=== PATIENT | female | born 1980 | race African-American/Black ===

== ENCOUNTER 2022-04-02 10:48 | Outpatient (RCR) | payer OTHER, SELFPAY ==
[2022-04-01] MEDS: BETAMETHASONE SOD PHOS/ACETATE 30 MG/5 ML VIAL 12 MG IM (10:16)
[2022-04-02] MEDS: BETAMETHASONE SOD PHOS/ACETATE 30 MG/5 ML VIAL 12 MG IM (11:00)
== END 2022-06-30 23:59 | disposition home or self-care (01) ==
LOC: ANHOBOP 10:48
PROVIDERS: Visit Provider Obstetrics & Gynecology
DX: O36.8990 Maternal care for other specified fetal problems, unspecified trimester, not applicable or unspecified (principal); Z3A.00 Weeks of gestation of pregnancy not specified
CPT/HCPCS: 96372; J0702

== ENCOUNTER 2022-04-07 01:09 | Observation (INO) | payer OTHER, SELFPAY ==
[2022-04-07] VITALS (7 sets, daily range): BP systolic 93–100; BP diastolic 48–55; PULSE 65–81; TEMP 36.6; BMI 29.1
[2022-04-07 01:47] LABS: Basophils Absolute Auto 0.1 K/mm3 (0.0-0.1); Basophils Percent Auto 0.5 % (0.2-1.2); Eosinophils Absolute Auto 0.1 K/mm3 (0-0.3); Eosinophils Percent Auto 0.8 % (0-4.4); Hematocrit 28.9 % (37.0-47.0); Hemoglobin 9.6 g/dL (12.0-15.0); Immature Granulocyte Absolute 0.22 K/mm3 (0.00-0.031); Immature Granulocyte Percent A 2.1 % (0-0.5); Lymphocytes Percent Auto 20.6 % (18.3-44.2); Mean Corpuscular HGB Conc 33.2 g/dl (32-36); Mean Corpuscular Hemoglobin 30.3 pg (26-34); Mean Corpuscular Volume 91.2 fl (80-100); Mean Platelet Volume 8.7 fl (7.4-10.4); Monocytes Absolute Auto 0.8 K/mm3 (0.1-0.6); Monocytes Percent Auto 7.9 % (2.6-8.5); Neutrophils Absolute Auto 7.3 K/mm3 (1.3-6.7); Neutrophils Percent Auto 68.1 % (45.5-73.1); Nucleated Red Blood Cells Perc 0.4 % (0.0-0.2); Platelet Count Result 366 k/mm3 (150-375); Red Blood Count 3.17 M/mm3 (4.2-5.4); Red Cell Distribution Width 13.1 % (11.5-14.5); White Blood Count 10.7 K/mm3 (4.5-10.0)
[2022-04-07] MEDS: DEXTROSE 5%/LACTATED RINGERS 1,000 ML 999 ML IV CONT (01:48)
[2022-04-07] MEDS: FAMOTIDINE 20 MG/2 ML VIAL IV PUSH (01:48)
[2022-04-07] MEDS: ONDANSETRON INJ 4 MG/2 ML VIAL IV PUSH (01:48)
[2022-04-07 01:49] LABS: Appearance Urine Clear (Clear); Bilirubin Urine Negative (Negative); Blood Urine Negative (Negative); Color Urine Light Yellow (Yellow); Glucose Urine UA Negative (Negative); Ketones Urine Negative (Negative); Leukocyte Esterase Ur Negative LEU/UL (NEGATIVE); Nitrate Urine Negative (Negative); Protein Urine Negative (Negative); Urobilinogen Urine 0.2 mg/dL (<2.0)
--- NOTE | 2022-04-07 01:54 | OBADM ---
This patient, Tim Alvarado, admitted to the OB room OB Post 117 for observation. Patient/family oriented to hospital policies and general routines including ID bracelet, bed and alarms, visiting hours, pain management, procedures, bathroom and other care routines, personal items, smoking policy, room service/diet, and visiting hours. Patient/Family are encouraged to report perceived risks to care and to ask questions if they do not understand what they are told or what they should do.
[2022-04-07 01:56] LABS: Bacteria Urine Trace /hpf; Mucus Urine Moderate /lpf; RBC Urine 0-2 /hpf (0-2); Squamous Epithelial Cell Urine Occasional /hpf (Few); WBC Urine 0-3 /hpf (0-3)
[2022-04-07 02:07] LABS: Add Urine Microscopic? NO; Alanine Aminotransferase 20 U/L (6-35); Albumin Level 3.4 g/dL (3.5-5.1); Alkaline Phosphatase 131 U/L (38-126); Anion Gap 4 mmol/L (8-16); Aspartate Amino Transferase 24 U/L (14-36); Bilirubin,Total 0.4 mg/dL (0.2-1.3); Blood Urea Nitrogen 4 mg/dL (7-17); Calcium 7.7 mg/dL (8.4-10.2); Carbon Dioxide 25 mmol/L (22-30); Chloride 104 mmol/L (98-107); Estimated CRCL calculation 154 ml/min; Estimated Glomerular Filt Rate > 60; Glucose 84 mg/dL (65-110); Potassium 3.7 mmol/L (3.4-5.0); Sodium 133 mmol/L (137-145)
--- NOTE | 2022-04-13 08:23 | PM.OBTRLD ---
OB - Triage/Final Diagnosis Visit Information Comments/Additional reasons for admission: I have assessed the risk for this patient, Tim Alvarado, and determined that she would benefit from observation care. Evaluation Laboratory results: Laboratory Tests 04/07/22 04/07/22 04/07/22 01:41 01:41 01:41 WBC 10.7 H RBC 3.17 L Hgb 9.6 L Hct 28.9 L MCV 91.2 MCH 30.3 MCHC 33.2 RDW 13.1 Plt Count 366 MPV 8.7 Immature Gran % (Auto) 2.1 H Neut % (Auto) 68.1 Lymph % (Auto) 20.6 [place] % (Auto) 7.9 Eos % (Auto) 0.8 Baso % (Auto) 0.5 Lymph # (Auto) 2.20 [place] # (Auto) 0.8 H Eos # (Auto) 0.1 Baso # (Auto) 0.1 Abs Immat Gran (auto) 0.22 H Absolute Neuts (auto) 7.3 H Absolute Nucleated RBC 0.0 Nucleated RBC % 0.4 H Sodium 133 L Potassium 3.7 Chloride 104 Carbon Dioxide 25 Anion Gap 4 L BUN 4 L Creatinine 0.40 L Estim Creat Clear Calc 154 Estimated GFR > 60 Glucose 84 Calcium 7.7 L Total Bilirubin 0.4 AST 24 ALT 20 Alkaline Phosphatase 131 H Total Protein 7.0 Albumin 3.4 L Urine Color Light yellow Urine Appearance Clear Urine pH 7.0 Ur Specific [place] 1.010 Urine Protein Negative Urine Glucose (UA) Negative Urine Ketones Negative Ur Blood (Man) Negative Urine Nitrate Negative Urine Bilirubin Negative Urine Urobilinogen 0.2 Ur Leukocyte Esterase Negative Urine RBC 0-2 Urine WBC 0-3 Ur Squamous Epith Cells Occasional Urine Bacteria Trace Urine Mucus Moderate H Final Diagnosis (1) Nausea/vomiting in : Code(s): O21.9 - Vomiting of , unspecified Status: Acute
== END 2022-04-07 03:36 | disposition home or self-care (01) ==
PROVIDERS: Advanced Practice Midwife; Admitting Provider Obstetrics & Gynecology; Visit Provider Obstetrics & Gynecology
DX: O21.2 Late vomiting of pregnancy (principal); O26.893 Other specified pregnancy related conditions, third trimester; R10.9 Unspecified abdominal pain; Z3A.35 35 weeks gestation of pregnancy
CPT/HCPCS: 36415; 80053; 81003; 85025; 87086; 96374; 96375; G0378; G0379; J2405; J7121

== ENCOUNTER 2022-04-23 06:28 | Inpatient (IN) | payer OTHER, SELFPAY ==
[2022-04-23] VITALS (39 sets, daily range): BP systolic 77–164; BP diastolic 37–144; PULSE 54–190; RESP 18; TEMP 36.6–37; O2SAT 80–100; BMI 29.9
--- NOTE | 2022-04-23 07:00 | P.PNAN_ITS ---
Anes - Eval Pre Procedure Procedure: labor epidural Date/Time: 04/23/22 07:00 Surgeon: onesimo Preop Diagnosis: pain during labor Pre Op Diagnosis: IOL Patient Data Age: 41 Gender: F Height: Weight: Allergies Allergy/AdvReac Type Severity Reaction Status Date / Time Latex, Natural Rubber Allergy Rash Verified 04/14/22 15:55 Home Medications Medication Instructions Recorded Confirmed Type famotidine 20 mg tablet (Pepcid) 20 mg PO BID 04/07/22 04/07/22 History nifedipine 10 mg capsule 10 mg PO BID 04/07/22 04/07/22 History ondansetron HCl 8 mg tablet 8 mg PO Q12H 04/07/22 04/07/22 History vit#24-iron amino acid 1 tablet PO DAILY 04/14/22 04/14/22 History chelat-folic acid 30 mg-975 mcg tablet Patient hx anesthesia problems: none Family hx anesthesia problems: none Results Review: All pre-operative results and documents have been reviewed as part of the pre- operative evaluation. PMFSH Past Medical History Medical History (Updated 04/23/22 @ 07:01 by Lina Kent CRNA) IUP (intrauterine ), incidental PIH ( induced hypertension) Family History Family History (Updated 04/14/22 @ 15:59 by Gavi Gregory RN) Other Unknown family medical history Social History Social History Substance use: never Spiritual care concerns: No Exam Day of Procedure 04/23/22 07:00
[2022-04-23 07:17] LABS: Basophils Percent Auto 0.2 % (0.2-1.2); Eosinophils Absolute Auto 0.1 K/mm3 (0-0.3); Eosinophils Percent Auto 0.9 % (0-4.4); Hematocrit 31.4 % (37.0-47.0); Hemoglobin 10.5 g/dL (12.0-15.0); Immature Granulocyte Absolute 0.13 K/mm3 (0.00-0.031); Immature Granulocyte Percent A 1.6 % (0-0.5); Lymphocytes Absolute Auto 1.83 K/mm3 (0.9-3.2); Lymphocytes Percent Auto 22.3 % (18.3-44.2); Mean Corpuscular HGB Conc 33.4 g/dl (32-36); Mean Corpuscular Hemoglobin 30.2 pg (26-34); Mean Corpuscular Volume 90.2 fl (80-100); Mean Platelet Volume 9.2 fl (7.4-10.4); Monocytes Absolute Auto 0.5 K/mm3 (0.1-0.6); Monocytes Percent Auto 5.9 % (2.6-8.5); Neutrophils Absolute Auto 5.7 K/mm3 (1.3-6.7); Neutrophils Percent Auto 69.1 % (45.5-73.1); Platelet Count Result 350 k/mm3 (150-375); Red Blood Count 3.48 M/mm3 (4.2-5.4); Red Cell Distribution Width 13.4 % (11.5-14.5); White Blood Count 8.2 K/mm3 (4.5-10.0)
[2022-04-23] MEDS: OXYTOCIN 30 UNITS/NS 500 ML 30 UNITS/500 ML BAG IV CONT (07:26)
[2022-04-23] MEDS: LACTATED RINGERS 1,000 ML 125 ML IV CONT ×2 (07:28→13:41)
[2022-04-23] MEDS: AMPICILLIN 2 GM/NS 100 ML 2 GM/100 ML BAG IVPB (07:28)
--- NOTE | 2022-04-23 07:39 | LDADM ---
This patient, Tim Alvarado, was admitted to Labor/Delivery/Recovery 108 on 04/23/22 at 06:28. Plans for labor, pain management and were discussed with patient. Patient/family oriented to hospital policies and general routines including ID bracelet, bed and alarms, visiting hours, pain management, procedures, bathroom and other care routines, personal items, smoking policy, room service/diet and guest tray routines, infant security routines, and visiting hours. Patient/Family are encouraged to report perceived risks to care and to ask questions if they do not understand what they are told or what they should do. See OBIX for further documentation.
--- NOTE | 2022-04-23 08:02 | WPDOBADMIT ---
Obstetrics - Admit Note Admission Note: record reviewed. No pertinent additions to the history and/or any subsequent changes in the physical findings that are not consistent with the expected course of the were found. iol for cholestasis, SVE /-2, AROM minimal amount of clear fluid, anticipate vaginal delivery Additions to the history and/or subsequent changes in the physical findings follow. None.
[2022-04-23] MEDS: FAMOTIDINE 20 MG/2 ML VIAL IV PUSH (08:11)
[2022-04-23] MEDS: AMPICILLIN 1 GM/NS 50 ML 1 GM/50 ML BAG IVPB (11:25)
[2022-04-23] MEDS: fentaNYL CITRATE INJ (*CRX) 100 MCG/2 ML VIAL 50 MCG IV PUSH (11:26)
[2022-04-23] MEDS: fentaNYL CITRATE INJ (*CRX) 100 MCG/2 ML VIAL IV PUSH ×2 (12:31→13:59)
[2022-04-23 13:50] LABS: Rapid Plasma Reagin Non-Reactive (NonReactive)
--- NOTE | 2022-04-23 15:08 | PM.OBPRVD ---
OB - Delivery Note Procedure Delivery date: 04/23/22 Procedure: Events: Other (suspected cholestasis) Induction method: AROM and Per Pitocin Protocol Delivery monitor: External FHT and External Uterine Route of delivery: Laceration Description: Perineal - 1st Degree Delivery repair: vicryl Specimen: Yes Quantitative Blood Loss (ml): 85 Anesthesia type: Epidural Disposition: Floor Baby Date of : 04/23/22 Time of : 14:57 Weeks of gestation at delivery: 38 gender: Male presentation: vertex position: Left Occiput Anterior Placenta delivery description: Spontaneous Cord Vessel Description: 3 Vessels, Nuchal Cord, Loose and Reduced score one minute: 8 score five minutes: 9 Narrative: mom and baby stable and doing skin to skin
[2022-04-23] MEDS: OXYTOCIN 30 UNITS/NS 500 ML 30 UNITS/500 ML BAG 125 UNITS IV CONT (15:22)
[2022-04-23] MEDS: WITCH HAZEL 40 PADS 1 PAD TOPICAL (17:50)
[2022-04-23] MEDS: BENZOCAINE 20% AER SPR (*SP) 56 GM CAN 1 SPRAY TOPICAL (17:50)
[2022-04-23] MEDS: IBUPROFEN 600 MG TABLET PO (17:57)
--- NOTE | 2022-04-23 18:08 | PC.NURSE ---
Patient transferred to post room #290 per wheelchair from labor and delivery. Support person present. Oriented to unit, room, information board, rooming in, admission packet and security measures. Patient verbalizes understanding.
[2022-04-24 00:04] VITALS: BP 83/49; PULSE 62; RESP 16; TEMP 36.9; O2SAT 99
[2022-04-24] MEDS: IBUPROFEN 600 MG TABLET PO ×3 (01:40→16:54)
[2022-04-24] MEDS: DOCUSATE SODIUM 100 MG CAPSULE PO ×3 (01:40→16:54)
[2022-04-24 04:20] VITALS: BP 87/52; PULSE 66; RESP 16; TEMP 36.8; O2SAT 97
[2022-04-24 04:29] LABS: Hematocrit 26.3 % (37.0-47.0); Hemoglobin 8.8 g/dL (12.0-15.0)
[2022-04-24 07:30] VITALS: BP 82/52; PULSE 60; RESP 18; TEMP 37.3; O2SAT 99
[2022-04-24] MEDS: POLYSACCHARIDE IRON COMPLEX 150 MG CAPSULE PO ×2 (08:18→16:54)
[2022-04-24] MEDS: MULTIVIT/MIN/PREN/FOL AC/IRON TABLET 1 TAB PO (08:18)
[2022-04-24] MEDS: FAMOTIDINE 20 MG TABLET (08:18)
--- NOTE | 2022-04-24 08:51 | PM.OBPNVD ---
OB - PN: Subj Subjective Date/time seen: 04/24/22 08:51 Patient comments: no complaints and pain well controlled baby status: nursing well [place] feeding status: exclusively breast feeding OB - PN: Obj Data Labs 04/24/22 04:14 Labs: Laboratory Results - last 24 hr 04/23/22 04/23/22 04/24/22 06:47 06:47 04:14 Hgb 8.8 L Hct 26.3 L RPR Non-reactive Antibody Screen Negative OB - PN A/P Assessment and Plan (1) , delivered: Code(s): O80 - Encounter for full-term uncomplicated delivery Status: Acute (2) Anemia: Code(s): D64.9 - Anemia, unspecified Status: Acute Plan day: 1 Plan: routine care Comments: IV iron home tomorrow Time Spent With Patient Time: Total time spent is greater than 50% in coordination of care (as documented) at patient's floor/unit and/or counseling patient: Time with patient: less than 15 minutes Exam Narrative: NAD abdomen soft, nontender, fundus firm below the umbilicus Extremities nontender, 1+ edema
[2022-04-24 12:45] VITALS: BP 101/56; PULSE 68; RESP 16; TEMP 36.8
--- NOTE | 2022-04-24 13:54 | WPDANLDPN2 ---
Anes-Prog Note L&D Date/Time: 04/24/22 13:54 Comfortable throughout: labor and delivery Neuraxial method: epidural Epidural/Spinal procedure site: clean & non-tender Neuro status: Neuro function grossly intact. Cardiovascular status: normal Respiratory status: normal Airway patency: baseline Mental status: baseline Post-Op hydration status: normal Vital Signs: Last Vital Signs Temp 98.3 F 04/24/22 12:45 Pulse 68 04/24/22 12:45 Resp 16 04/24/22 12:45 BP 101/56 L 04/24/22 12:45 Pulse Ox 99 04/24/22 07:30 O2 Del Method Room Air 04/23/22 07:37 Pain score (VAS): 0 I/O: Intake & Output 04/23/22 04/24/22 04/24/22 23:59 07:59 15:59 Intake Total 1000 500 Balance 1000 500 Post-procedural complaints: none Patient feedback: Patient satisfied with anesthetic care despite delivery before epidural set up.
[2022-04-24] MEDS: TETANUS,DIPHTHERIA,AC PERTUSSIS ADULT (0.5 ML) BOOSTRIX IM (16:55)
[2022-04-24 19:23] VITALS: BP 90/57; PULSE 81; RESP 18; TEMP 36.8; O2SAT 97
--- NOTE | 2022-04-24 19:40 | PC.NURSE ---
Patient instructed to view the discharge video Mother & Baby Care, The First Two Weeks . Patient was given the opportunity and encouraged to ask questions. Patient verbalized understanding of information shared and has been given the mother/baby guide for home reference.
[2022-04-25] MEDS: FAMOTIDINE 20 MG TABLET PO ×2 (02:18→08:33)
[2022-04-25] MEDS: IBUPROFEN 600 MG TABLET PO ×2 (02:18→08:33)
[2022-04-25 08:00] VITALS: BP 92/58; PULSE 58; RESP 18; TEMP 36.8; O2SAT 99
[2022-04-25] MEDS: DOCUSATE SODIUM 100 MG CAPSULE PO (08:32)
[2022-04-25] MEDS: MULTIVIT/MIN/PREN/FOL AC/IRON TABLET 1 TAB PO (08:33)
[2022-04-25] MEDS: POLYSACCHARIDE IRON COMPLEX 150 MG CAPSULE PO (08:33)
--- NOTE | 2022-04-25 09:57 | PM.OBPNVD ---
OB - PN: Subj Subjective Date/time seen: 04/25/22 09:57 Patient comments: no complaints baby status: doing well OB - PN: Obj Data Labs 04/24/22 04:14 OB - PN A/P Plan day: 2 Plan: routine care and discharge home Time Spent With Patient Time: Total time spent is greater than 50% in coordination of care (as documented) at patient's floor/unit and/or counseling patient: Time with patient: less than 15 minutes Exam Narrative: NAD abdomen soft, nontender, fundus firm below the umbilicus Extremities nontender, 1+ edema
--- NOTE | 2022-04-25 10:02 | PM.OBDSVD ---
DS: Admitting Diagnosis Discharge Date 04/25/22 Admitting Diagnosis cholestasis DS: Discharge Diagnosis Discharge Diagnosis (1) , delivered: Code(s): O80 - Encounter for full-term uncomplicated delivery Status: Acute (2) Cholestasis during : Code(s): O26.619 - Liver and biliary tract disorders in , unspecified trimester; K83.1 - Obstruction of bile duct Status: Acute OB - DS: Summary Hospital Course Hospital Course: Tim was admitted for induction of labor at term due to presumed cholestasis of . She proceeded to have an uncomplicated vaginal delivery and course. She did receive IV iron for anemia. She was discharged home on PPD 2. OB Procedures : Ultrasound OB Procedures Intrapartum: Spontaneous Vag Delivery OB Procedures: : None Peripartum Data Delivery Method: Natural Vaginal complications: none Status at Discharge Functional status at discharge: independent ambulation Time Spent with Patient Time attestation: Total time spent providing and/or coordinating discharge services: Exam Narrative: NAD abdomen soft, appropriately tender Ext non tender, 1+ edema DS: Data Data Completed and Pending Pending studies at discharge: Pending at discharge 04/23/22 15:01 Surgical [PTH] Routine Discharge Plan Discharge Attending physician on discharge: Prabha Almanza Discharging Clinician: Prabha Almanza Anticipated Discharge Date/Time: 04/25/22 11:00 Patient Disposition: Home, Self-Care Activity: pelvic rest Diet: regular Discharge Instructions: Education: Mom and Baby Guide Given to: Mother Follow-Up: Call your delivering provider's office for an appointment to be seen in: 4 Weeks Mom and baby should come to the [facility] for the follow-up appointment. Appointment Date/Time: April 26, 2022 at 10:00 am What to expect at your follow-up visit: Physical Assessment Call [phone] if you are unable to keep your appointment time. BREAST CARE: * Wear a snug supportive bra. * For engorgement discomfort: Breast Feeding: * Apply warm moist washcloths * Express milk as needed to relieve engorgement * Wear loose clothing * For sore nipples: * Identify correct latch-on * Apply warm moist washcloths before and after nursing * Air dry nipples after nursing * May apply Lansinoh cream to nipples ABDOMINAL INCISION: (if applicable) * Allow incision to air dry * Do NOT use lotions for powders on your incision * When showering, allow soap and water to run over the incision, but do not wash incision EPISIOTOMY/PERINEAL CARE: * Until bleeding stops, use your candelaria bottle after urinating * Change your pad frequently throughout the day * You may take sitz baths several times a day (fill your bathtub with warm water and soak for 20 minutes.) Do NOT bathe in the water * No tub baths until seen by your physician - You may shower ACTIVITY: * Rest as much as possible. * Do not exercise or lift anything heavier than your baby (such as laundry or other children.) * Avoid stairs or driving as much as possible. * Do not put anything into the vagina. No douching, tampons, or sexual activity until seen by physician. NOTIFY PHYSICIAN IF YOU HAVE ANY QUESTIONS OR IF ANY OF THE FOLLOWING SYMPTOMS OCCUR: * If your episiotomy or incision becomes red, swollen, or more painful than what you have experienced in the hospital. * If your vaginal bleeding becomes foul smelling. * If your vaginal bleeding becomes more heavy than a period or if your bleeding changes from pink to bright red. However, you may pass an occasional walnut-sized clot once or twice for the first week . * If you experience a sharp, shooting pain in you calves. * If you discover a hard, reddened area on your breast or if
[2022-04-26 10:32] VITALS: BP 98/58; PULSE 72; RESP 18; TEMP 37.3; O2SAT 100
== END 2022-04-25 10:46 | disposition home or self-care (01) | DRG 805 ==
LOC: ANHLDR 06:33 → ANHOB2 18:12
PROVIDERS: Advanced Practice Midwife; Admitting Provider Obstetrics & Gynecology; PCP Internal Medicine; Visit Provider Obstetrics & Gynecology
DX: O26.62 Liver and biliary tract disorders in childbirth (principal); K83.1 Obstruction of bile duct; Z37.0 Single live birth; O99.824 Streptococcus B carrier state complicating childbirth; O70.0 First degree perineal laceration during delivery; Z3A.38 38 weeks gestation of pregnancy; O69.81X0 Labor and delivery complicated by cord around neck, without compression, not applicable or unspecified; O99.02 Anemia complicating childbirth
CPT/HCPCS: 36415; 85014; 85018; 85025; 86592; 86850; 86900; 86901; 88307; 90715; A9270; J0290; J1756; J2590; J2795; J3010; J7120

== ENCOUNTER 2022-08-24 00:59 | Day surgery (SDC) | payer OTHER, SELFPAY ==
[2022-08-18 16:51] VITALS: BMI 27.3
--- NOTE | 2022-08-18 17:03 | PC.NURSE ---
Report to the Outpatient Waiting Room, entrance under the green pavilion located off [facility], at time 0600_ on date 08/24/22 Planned Procedure Time: _0730. Time changes happen often and if your time is changed the preop area will call you the afternoon before. - You and your visitor will be asked to self-screen and do not enter if you have any COVID symptoms. - A mask is optional within the hospital at this time. Patients may have clear liquids (water, carbonated beverages, clear teas, apple juice) until 3 hours prior to surgery with a maximum of 20 ounces. - No food from midnight until time of surgery - Infants may have breast milk until 4 hours before surgery, formula 6 hours prior to surgery. - Children will be allowed to drink immediately following surgery. If applicable, please bring a bottle or sippy cup to assist with drinking. Juice, water, soda, and popsicles are readily available. For infants on formula, please bring formula the day of surgery. Pacifiers are allowed. Take the following medications with a SIP of water the morning of surgery: _n/a DO NOT STOP ANY OF YOUR OTHER PRESCRIPTION MEDICATIONS PRIOR TO SURGERY ?EXCEPT THE FOLLOWING Medications to discontinue per physician __prenatal vitamin Date to take last dose_08/21/22____ Please no make-up, nail rwandan, hairspray, perfume, deodorant, or body powder the day of surgery. No jewelry (including any body piercings) or valuables the day of surgery, leave them at home. Please take a shower or bath the night before, or the morning of, surgery with an antibacterial soap. Wear comfortable, loose fitting clothing. Children are encouraged to wear pajamas. - Jewelry must be removed prior to entering the operating room. Rings and piercings that are not removed may be cut off. - The hospital will not accept responsibility for valuables. - Please leave all valuables, including medications, at home the day of surgery. If you are going home after surgery, a licensed local hazmat driver must drive you home. - NO public transportation without another adult if you receive anesthesia. - We recommend that an adult stay with you for 24 hours following discharge. - We also recommend that you do not drive, make important decision, drink alcoholic beverages, or take any drugs that were not prescribed by your health care provider for at least 24 hours after your discharge time. For Pediatric surgeries, we recommend two adults accompany the child home. Follow any additional instructions given to you from your surgeon. If you or anyone in your household have experienced Covid symptoms in the past week, please notify your surgeon or the nurse liaison at the phone number below for possible testing. Telephone instructions given to _Tim Alvarado_and asked if any additional questions and then verbalized understanding. Patient advised to call surgeon office or pre surgery nurse liaison [phone] if any additional questions.
[2022-08-24] VITALS (12 sets, daily range): BP systolic 98–119; BP diastolic 65–80; PULSE 58–113; RESP 12–16; TEMP 36.5–37.1; O2SAT 94–100
[2022-08-24] MEDS: ACETAMINOPHEN 500 MG TABLET 1000 MG PO (06:47)
[2022-08-24] MEDS: LACTATED RINGERS 1,000 ML 30 ML IV CONT ×2 (06:59→09:07)
[2022-08-24] MEDS: KETOROLAC 15 MG/ML VIAL (*BKC) IV PUSH (07:02)
[2022-08-24 07:05] LABS: Hematocrit 36.3 % (37.0-47.0); Hemoglobin 11.8 g/dL (12.0-15.0)
[2022-08-24] MEDS: FAMOTIDINE 20 MG/2 ML VIAL IV PUSH (07:09)
--- NOTE | 2022-08-24 07:17 | WPDANESEPPF ---
Anes - Initial Pre Proc Eval Procedure: Operation Date: 08/24/22 07:30 Proposed Procedures p Bilateral Laparoscopic Salpingectomy, - Tamara Aguero MD s Loop Electrical Excision Procedure - Tamara Aguero MD Date/Time: 08/24/22 07:17 Surgeon: Tamara Aguero MD Pre Op Diagnosis: desires sterilization, dysplasia of cervix Patient Data Age: 41 Gender: F Height: 1.6 m Weight: 70 kg Last Vital Signs Temp 97.7 F 08/24/22 06:33 Pulse 58 L 08/24/22 06:33 Resp 16 08/24/22 06:33 BP 113/67 08/24/22 06:33 Pulse Ox 100 08/24/22 06:33 O2 Del Method Room Air 08/24/22 06:33 Allergies Allergy/AdvReac Type Severity Reaction Status Date / Time Latex, Natural Rubber Allergy Intermediate Rash Verified 08/24/22 06:43 Home Medications Medication Instructions Recorded Confirmed Type famotidine 20 mg tablet (Pepcid) 20 mg PO BID 04/07/22 08/24/22 History vit#24-iron amino acid 1 tablet PO DAILY 04/14/22 08/24/22 History chelat-folic acid 30 mg-975 mcg tablet buspirone 10 mg tablet 10 mg PO DAILY 08/24/22 08/24/22 History citalopram 20 mg tablet 20 mg PO DAILY 08/24/22 08/24/22 History Laboratory Tests 08/24/22 06:29 Hgb Pending Hct Pending Patient hx anesthesia problems: none Family hx anesthesia problems: none Results Review: All pre-operative results and documents have been reviewed as part of the pre-operative evaluation. [facility] Past Medical History Medical History (Updated 04/25/22 @ 10:03 by Prabha Almanza MD) IUP (intrauterine ), incidental PIH ( induced hypertension) Family History Family History (Updated 04/14/22 @ 15:59 by Gavi Gregory RN) Other Unknown family medical history Social History Social History Smoking status: Never smoker Alcohol intake: never Substance use: never Lack of Transportation: No Lack of Food: Never True Current Housing: I Have Housing Concerned About Future Housing: No Difficulty Paying Gas/Electric Bills: No Difficulty Paying for Meds: No Currently Unemployed: No Education: Associate Degree Difficulty w/ Childcare or Family Care: No Living arrangements: with family Spiritual care concerns: No Anes - Eval Final PreProcedure Day of Procedure 08/24/22 07:17 Patient weight: normal Heart: regular rate and rhythm Lungs: clear to auscultation Airway: Mallampati scale class II Neurological: alert and oriented Last oral intake: >/= 8 hours ASA classification: II Emergent: no Anesthetic plan: proceed Anesthesia type and monitoring: general ETT and standard monitoring Results Review: All pre-operative results and documents have been reviewed as part of the pre-operative evaluation. Informed Consent: The patient's anesthetic plan and its attendant risks and benefits were discussed with the patient/family/POA. Questions were solicited and answers provided to the satisfaction of the patient/family/POA.
--- NOTE | 2022-08-24 07:21 | WPDHPUPDATE1 ---
History and Physical Update Update Date/Time: 08/24/22 07:21 History and Physical has been reviewed, including an updated exam of the patient. There are NO changes in the patient's condition. Risks, benefits, and alternatives have been discussed and questions answered. Patient agrees to proceed with procedure.
[2022-08-24] MEDS: IODINE/POTASSIUM IODIDE 8 ML SOLUTION TOPICAL (07:36)
[2022-08-24] MEDS: LIDO 1%/EPINEPHRINE 1:100,000 50 ML VIAL 10 ML INFILTRATE (07:36)
[2022-08-24] MEDS: fentaNYL CITRATE INJ (*CRX) 100 MCG/2 ML VIAL 25 MCG IV PUSH ×4 (09:20→09:44)
--- NOTE | 2022-08-24 09:29 | W.PM.PROC2 ---
Procedure Note - Detailed Date of Procedure 08/24/22 Pre-op Diagnosis desires sterilization, dysplasia of cervix Post-op Diagnosis Same Procedure Performed Laparoscopic bilateral salpingectomy And LEEP procedure Surgeon Tamara Aguero MD Anesthesia General Indications Unwanted fertility Findings Normal pelvic anatomy Description of Procedure The patient was taken the operating room. She was prepped and draped in the dorsal lithotomy position after induction of general anesthesia. A 5 mm skin incision was made in the left upper quadrant of the abdominal skin. A 5 mm trocar was inserted the intra-abdominal cavity under direct visualization of the scope. Pneumoperitoneum was achieved. A 5 mm trocar was inserted in the left lower quadrant identical fashion. A 5 mm infraumbilical trocar was inserted in identical fashion as well. The bilateral fallopian tubes were removed. This was done by using a LigaSure cautery. The mesosalpinx adjacent to the tube was cauterized transected with LigaSure. This was initiated in the area the ovary and in a stepwise fashion moved medially to the area of the cornu of the uterus. Once there the fallopian tube was cauterized and transected. This was done in identical fashion on each side. The fallopian tubes were taken out through the left lower quadrant trocar site. The pneumoperitoneum was reduced. The trocars removed. The skin was closed with subcuticular 4 Monocryl and covered with Dermabond. A coated speculum was placed in the vagina.? The cervix was injected at 3 and 9:00 a.m. with lidocaine.Stay sutures of 0 Vicryl placed at 3 and 9:00 a.m.? A electrode loop was used to excise the central portion of the cervix in 1 motion.? This was from 9:00 to 3:00.? an extension was made down in the endocervix Using a square loop electrode There was narrow.. After excision of that tissue the cut surface was cauterized with ball cautery.? The Monsel solution was applied to the cut surfaces well. there was a tear in the lateral aspect of the cervix at the sulcus with the vagina. Attention on the stay suture probably cause this tear as the cervix in that area became more thin after the excisional procedure. Multiple [id number] sutures were placed along that side, approximately 2-3. Monsel's and cautery were also applied making it hemostatic.? The speculum was removed.? The patient tolerated the procedure well.? She was seeing cover stable condition.? She was taken to cover stable condition. Sponge lap and needle counts were correct x2. Estimated Blood Loss -500.0 Drains No Packing No Pathology Yes Complications Other complications ( cervical tear and subsequent hemorrhage) Condition Stable Disposition PACU
--- NOTE | 2022-08-24 10:47 | SUR.OPER ---
EBL: 500ml
[2022-08-24] MEDS: oxyCODONE HCL (*CRX) 5 MG TAB IR PO (10:50)
--- NOTE | 2022-08-24 10:51 | SUR.PHASEII ---
1050 - medicated for pain. family member in room. pt using breast pump. remains sleepy, but responds timely and appropriately.
== END 2022-08-24 12:00 | disposition home or self-care (01) ==
PROVIDERS: Anesthesiology; PCP Internal Medicine; Visit Provider Obstetrics & Gynecology
PROC: (CPT 49320; principal; 2022-08-24 07:30)
PROC: 0UBC7ZZ Excision of Cervix, Via Natural or Artificial Opening (ICD-10-PCS; CPT 57522; 2022-08-24 07:30)
DX: Z30.2 Encounter for sterilization (principal); N87.1 Moderate cervical dysplasia; N83.8 Other noninflammatory disorders of ovary, fallopian tube and broad ligament
CPT/HCPCS: 58661; 57522; 36415; 85014; 85018; 88302; 88307; A9270; J0330; J1100; J1885; J2250; J2370; J2405; J2704; J3010; J7030; J7120

== ENCOUNTER 2025-02-11 11:02 | Emergency (ER) | payer OTHER, SELFPAY ==
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
--- NOTE | ~2025-02-11 | CT_ITS ---
EXAMINATION: CT brain wo con DATE: 02/11/2025 12:07 INDICATION: Headache TECHNIQUE: Computed tomography (CT) of the head was performed without intravenous contrast. Sagittal and coronal reconstructions were performed. The mA was adjusted according to patient size. Iterative reconstruction technique was employed. The dose-length product was 605.33 mGy-cm. COMPARISON: None FINDINGS: No acute intracranial hemorrhage, acute infarction or abnormal extra axial fluid collection. Ventricles are normal and symmetric. No mass/mass effect. Empty sella with pituitary gland flattened along the inferior wall of the CSF filled sella. The orbits, paranasal sinuses and mastoid air cells are normal. IMPRESSION: 1. Empty sella with pituitary flattened along the floor of the sella which can be seen with idiopathic intracranial hypertension. Otherwise unremarkable head CT. Reviewed, dictated and finalized at location A. [employer]ST[employer]ARD[employer] IMPRESSION: 1. Empty sella with pituitary flattened along the floor of the sella which ca n be seen with idiopathic intracranial hypertension. Otherwise unremarkable hea d CT.
[2025-02-11 11:41] VITALS: BP 95/65; PULSE 83; RESP 20; TEMP 36.6; O2SAT 98
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
[2025-02-11] MEDS: NAPROXEN 500 MG TABLET PO (12:21)
[2025-02-11 13:11] VITALS: BP 99/60; PULSE 66; RESP 18; O2SAT 97
== END 2025-02-11 13:14 | disposition home or self-care (01) ==
PROVIDERS: Emergency Provider Emergency Medicine; PCP Internal Medicine
DX: S63.91XA Sprain of unspecified part of right wrist and hand, initial encounter (principal); V43.52XA Car driver injured in collision with other type car in traffic accident, initial encounter
CPT/HCPCS: 70450; 71046; 73110; 73130; 99284; A9270